=== PATIENT | female | born 1985 | race Caucasian/White ===

== ENCOUNTER → 2019-10-04 15:10 | Outpatient (CLI) | payer OTHER, SELFPAY ==
--- NOTE | ~2019-10-04 | US_ITS ---
EXAMINATION: US transvaginal DATE: 10/04/2019 15:46 INDICATION: Left ovarian cyst TECHNIQUE: Multiple endovaginal sonographic images of the pelvis were obtained. COMPARISON: 08/04/2019 FINDINGS: The uterus measures 6.8 x 3.2 x 4.9 cm. An IUD is in expected position. The endometrial com plex measures 4 mm. The right ovary measures 2.8 x 2.7 x 4.5 cm. There are multiple cysts of the righ t ovary which measure up to 2.4 cm, normal in a reproductive age female. There is a 1.8 x 1.2 x 2.0 c m cystic area seen inferiorly in the right adnexa not definitely seen on the prior examination. The l eft ovary measures 2.2 x 1.6 x 2.2 cm. No persistent left ovarian cyst is identified. There is trupti l vascular flow in the ovaries. There is no free fluid in the pelvis. IMPRESSION: 1. Normal ovaries. 2. Cystic area of the right adnexa measuring up to 2 cm which could reflect a small amount of fluid. Sonographic follow-up is recommended. Reviewed, dictated and finalized at location A. [employer] IMPRESSION: 1. Normal ovaries. 2. Cystic area of the right adnexa measuring up to 2 cm which could reflect a s mall amount of fluid. Sonographic follow-up is recommended.
== END ==
PROVIDERS: Visit Provider Nurse Practitioner Women's Health
DX: N83.202 Unspecified ovarian cyst, left side (principal)
CPT/HCPCS: 76830